=== PATIENT | male | born 1945 | race Caucasian/White ===

== ENCOUNTER → 2022-05-08 07:50 | Outpatient (CLI) | payer MEDICARE, OTHER, SELFPAY ==
--- NOTE | 2022-05-08 07:51 | CA_ITS ---
FINAL REPORT TECHNIQUE: Grayscale, color Doppler and duplex Doppler ultrasound of the kidneys, aorta and renal arteries was performed. Multiple velocities were measured. CLINICAL HISTORY: HTN FINDINGS: Aorta velocity: 99 cm/sec Right kidney: 11.5 cm. No evidence of hydronephrosis or mass. Right intrarenal RI: 0.7 Right renal artery velocity: 210 cm/sec. Right RAR (Renal artery-Aortic Ratio): 2.1 Left Kidney: 11.6 cm. No evidence of hydronephrosis or mass. Left intrarenal RI: 0.68 Left renal artery velocity: 154 cm/sec. Left RAR (Renal Artery-Aortic Ratio): 1.6 IMPRESSION: No evidence of significant renal artery stenosis on the left. Less than 60% renal artery stenosis on the right. CT angiogram or postcontrast MR angiogram would be more sensitive for evaluation of possible renal artery stenosis. Reviewed, Interpreted and Dictated by Adis Davis III, MD Transcribed by Chitra Resendez Authenticated and [facility]
--- NOTE | 2022-05-08 08:24 | US_ITS ---
FINAL REPORT TECHNIQUE: Ultrasound images of the kidneys were obtained. CLINICAL HISTORY: I10 - Essential (primary) hypertension FINDINGS: US RETROPERITONEAL The right kidney measures 9.8 cm in length. It is normal in echogenicity. There is no hydronephrosis. The left kidney measures 10.8 cm in length. It is normal in echogenicity. There is no hydronephrosis. Limited images of the liver are unremarkable. IMPRESSION: Unremarkable exam. Reviewed, Interpreted and Dictated by Adis Davis III, MD Transcribed by Chitra Resendez Authenticated and [facility]
== END ==
PROVIDERS: PCP Family Medicine; Visit Provider Internal Medicine
DX: I10 Essential (primary) hypertension (principal)
CPT/HCPCS: 76770; 93976

== ENCOUNTER → 2022-05-22 08:41 | Outpatient (CLI) | payer MEDICARE, OTHER, SELFPAY ==
[2022-05-22 09:06] LABS: Blood Urea Nitrogen 14 mg/dl (9-20); Estimated Glomerular Filt Rate 82 ml/min (>60); GFR (African American) 100 ML/MIN (>60)
--- NOTE | 2022-05-22 09:13 | MR_ITS ---
FINAL REPORT TECHNIQUE: Multi planar MR imaging of the abdomen was obtained after the intravenous administration of contrast per angiogram protocol. CLINICAL HISTORY: abnl renal arterial duplex, HYPERTENSION NOW UNDER CONTROL WITH MEDS. FINDINGS: There is a benign-appearing right renal cyst measuring 10 mm. Remaining solid abdominal organs are without acute abnormality. There is a single left and dual right renal arteries. Superior right renal artery is dominant. There is an accessory inferior right renal artery. No significant renal artery stenosis is seen. The aorta is normal in caliber. The celiac axis and SMA are widely patent. IMPRESSION: No significant arterial stenosis. Reviewed, Interpreted and Dictated by Edson Aj MD Transcribed by Chio Hernandez Authenticated and [facility]
== END ==
PROVIDERS: PCP Family Medicine; Visit Provider Internal Medicine
DX: I11.9 Hypertensive heart disease without heart failure; R06.02 Shortness of breath; R93.421 Abnormal radiologic findings on diagnostic imaging of right kidney; R93.422 Abnormal radiologic findings on diagnostic imaging of left kidney; R94.31 Abnormal electrocardiogram [ECG] [EKG]; E78.49 Other hyperlipidemia
CPT/HCPCS: 36415; 74185; 82565; 84520; A9576

== ENCOUNTER → 2023-03-26 13:15 | Outpatient (CLI) | payer MEDICARE, OTHER, SELFPAY ==
[2023-03-26 13:41] LABS: Basophils # 0.1 K/mm3 (0-0.2); Basophils % 0.9 % (0.1-2.0); Eosinophils # 0.6 K/mm3 (0.0-0.4); Eosinophils % 6.3 % (0.1-12.0); Hematocrit 47.9 % (42.0-52.0); Hemoglobin 15.5 g/dL (14.1-18.0); Lymphocytes # 2.6 K/mm3 (0.7-4.5); Lymphocytes % 29.3 % (10-50); Mean Corpuscular HGB Conc 32.3 g/dL (31.8-35.4); Mean Corpuscular Hemoglobin 30.6 pg (27.0-31.2); Mean Corpuscular Volume 94.7 fl (80-94); Mean Platelet Volume 7.6 fl (7.4-10.4); Monocytes # 0.7 K/mm3 (0.1-1.0); Monocytes % 7.5 % (1.7-9.3); Neutrophils # 4.9 K/mm3 (1.8-7.8); Neutrophils % 55.8 % (37.0-80.0); Platelet Count 249 K/mm3 (142-424); Red Blood Count 5.06 M/mm3 (4.60-6.20); Red Cell Distribution Width 12.9 % (11.5-17.5); White Blood Count 8.7 K/mm3 (4.8-10.8)
[2023-03-26 14:41] LABS: Alanine Aminotransferase 29 U/L (12-78); Albumin Level 4.3 g/dl (3.5-5.0); Alkaline Phosphatase 125 U/L (38-126); Anion Gap 12.8 mEq/L (5-15); Aspartate Amino Transferase 29 U/L (17-59); Bilirubin,Indirect 0.6 mg/dL (0.0-0.9); Bilirubin,Total 0.6 mg/dl (0.2-1.3); Bilirubin,Unconjugated 0.7 mg/dL (0.0-1.1); Blood Urea Nitrogen 20 mg/dl (9-20); Calcium 9.6 mg/dl (8.4-10.2); Carbon Dioxide 31 mmol/L (22.0-30.0); Chloride 103 mmol/L (98-107); Chol/HDL Ratio 4.3 (1-3.5); Cholesterol 176 mg/dl (140-200); Estimated Glomerular Filt Rate 82 ml/min (>60); GFR (African American) 99 ML/MIN (>60); Glucose 95 mg/dl (74-100); HDL Cholesterol 41 mg/dl (40-60); Magnesium 2.3 mg/dl (1.6-2.3); Potassium 4.8 mmoL/L (3.5-5.1); Sodium 142 mmol/L (136-145); Total Protein,Serum 7.7 g/dl (6.3-8.2); Triglycerides 275 mg/dl (30-150); VLDL Cholesterol 55 mg/dL (0-40)
[2023-03-26 14:57] LABS: 25-OH Vitamin D, Total 38.5 ng/mL (30-100)
[2023-03-26 14:58] LABS: Free T4 (Free Thyroxine) 1.13 ng/dl (0.78-2.19)
== END ==
PROVIDERS: PCP Family Medicine; Visit Provider Internal Medicine
DX: E78.5 Hyperlipidemia, unspecified (principal); I11.9 Hypertensive heart disease without heart failure; R94.31 Abnormal electrocardiogram [ECG] [EKG]; E55.9 Vitamin D deficiency, unspecified
CPT/HCPCS: 36415; 80048; 80061; 80076; 82306; 83735; 84439; 84443; 85025

== ENCOUNTER 2023-09-22 08:14 | Outpatient (CLI) | payer MEDICARE, OTHER, SELFPAY ==
--- NOTE | 2023-09-22 08:25 | CA_ITS ---
APPROVED REPORT EXAM: Comprehensive 2D, Doppler, and color-flow Echocardiogram Shadow Graph Weight Operator: Kamille Ram RT(R) Ht: 5 ft 11 in Wt: 235lbs BSA: 2.26 BP: 129/77 mmHg Indications: Abnormal ECG, Shortness of Breath, Hyperlipidemia, Hypertension/HDD 2D Dimensions LA Volume 32.90 mL LA Volume Index 14.20 mL/m2 (M/F) 16-34 EF AP4 40.50 % GL Strain -10.6 % M-Mode Dimensions RVDd 2.78 cm (0.9-2.6) LA Diam 3.51 cm (1.9-4.0) LVDd 5.88 cm (3.5-5.7) LVDs 4.35 cm (3.5-5.7) IVSd 1.29 cm (0.6-1.1) PWd 0.81 cm (0.6-1.1) EF (Teich) 50.30% FS 26.00% EDV (Teich) 171.90 mL ESV (Teich) 85.40 mL LV Diastology E Decel Time 280 (160-240 msec) E/A Ratio 0.74 Mitral Valve MV E Max Sandip. 58.0 (40-130 cm/s) MV A Velocity 79.0 (40-130 cm/s) E/A Ratio 0.74 MV PHT 82.0 ms Tricuspid Valve TR P. Velocity 270.00 cm/s RAP Estimate 10.00 mmHg RVSP 39.10 mmHg Left Ventricle The left ventricle is normal size. The left ventricular systolic function is normal. The left ventricular ejection fraction is within the normal range. There is marked increase in LV wall thickness (IVSd 1.4 cm). There is normal LV segmental wall motion. Diastolic function is indeterminate. LVEF is 55%. Right Ventricle The right ventricle is mildly dilated. The right ventricular systolic function is normal. Atria The left atrium size is normal. The right atrium size is normal. The interatrial septum is not well-visualized. Aortic Valve The aortic valve is mildly thickened. There is no aortic valvular stenosis. Trace aortic regurgitation. Mitral Valve The mitral valve leaflets are mildly thickened. No evidence of mitral valve stenosis. Trace mitral regurgitation. Tricuspid Valve The tricuspid valve leaflets are thin and pliable. Mild tricuspid regurgitation. RVSP is 30 mmHg plus RA pressure. Pulmonic Valve The pulmonary valve is normal in structure. Mild pulmonic regurgitation. Great Vessels The aortic root is normal in size. The ascending aorta is normal in size. The IVC is not well-visualized. Pericardium There is no pericardial effusion. Other Information Study Quality: Fair Conclusion Normal biventricular systolic function. Markedly elevated LV wall thickness (IVSd 1.4 cm). Mild RV dilation. Mild MR. Mild TR. RVSP 30 mmHg + RA pressure. In the setting of marked increase in LV wall thickness and presence of symptoms, further evaluation for infiltrative disease, namely amyloidosis, is recommended with cardiac MRI (amyloidosis protocol), PYP scan, and lab workup. Electronically signed by : Deedee Monsivais MD 09/23/2023 11:44:16
[2023-09-22 08:26] LABS: MANUAL DIFFERENTIAL MANUAL DIFFERENTIAL (MANUAL DIFF)
--- NOTE | 2023-09-22 08:41 | XR_ITS ---
FINAL REPORT CLINICAL HISTORY: htn FINDINGS: 2 views of the chest were obtained . The heart is normal in size. The mediastinum is within normal limits. There are mild patchy airspace opacities of the lung bases which may be due to mild pneumonia. There is no pneumothorax. Osseous structures are unremarkable. IMPRESSION: Mild patchy airspace opacities at the lung bases which may be due to mild pneumonia. Recommend follow-up. Reviewed, Interpreted and Dictated by Edson Aj MD Transcribed by Chio Hernandez Authenticated and . [facility]
[2023-09-22 08:43] LABS: Basophils # 0.1 K/mm3 (0-0.2); Basophils % 0.7 % (0.1-2.0); Eosinophils # 0.6 K/mm3 (0.0-0.4); Eosinophils % 7.2 % (0.1-12.0); Hematocrit 47.2 % (42.0-52.0); Hemoglobin 16.1 g/dL (14.1-18.0); Lymphocytes # 1.6 K/mm3 (0.7-4.5); Lymphocytes % 17.6 % (10-50); Mean Corpuscular HGB Conc 34.2 g/dL (31.8-35.4); Mean Corpuscular Hemoglobin 32.1 pg (27.0-31.2); Mean Corpuscular Volume 93.9 fl (80-94); Monocytes # 0.6 K/mm3 (0.1-1.0); Neutrophils % 67.5 % (37.0-80.0); Platelet Count 238 K/mm3 (142-424); Red Blood Count 5.02 M/mm3 (4.60-6.20); Red Cell Distribution Width 13.7 % (11.5-17.5); White Blood Count 8.8 K/mm3 (4.8-10.8)
[2023-09-22 09:47] LABS: Eosinophils % 10 % (0-3); Lymphocytes % 26 % (10-50); Monocytes % 4 % (2-9); Neutrophils % 60 % (42-76); Platelet Estimate Normal; RBC Morphology Normal; Total Cells Counted 100
[2023-09-22 10:58] LABS: Chloride 101 mmol/L (98-107); Sodium 138 mmol/L (136-145)
[2023-09-22 10:59] LABS: Potassium 4.5 mmoL/L (3.5-5.1)
[2023-09-22 11:01] LABS: Alanine Aminotransferase 23 U/L (12-78); Albumin Level 4.3 g/dl (3.5-5.0); Alkaline Phosphatase 95 U/L (38-126); Anion Gap 13.5 mEq/L (5-15); Aspartate Amino Transferase 35 U/L (17-59); Bilirubin,Direct 0.8 mg/dl (0.0-0.4); Bilirubin,Indirect 0.1 mg/dL (0.0-0.9); Bilirubin,Total 0.9 mg/dl (0.2-1.3); Blood Urea Nitrogen 19 mg/dl (9-20); Calcium 9.5 mg/dl (8.4-10.2); Carbon Dioxide 28 mmol/L (22.0-30.0); Chol/HDL Ratio 5.3 (1-3.5); Cholesterol 159 mg/dl (140-200); Estimated Glomerular Filt Rate 72 ml/min (>60); GFR (African American) 88 ML/MIN (>60); Glucose 121 mg/dl (74-100); HDL Cholesterol 30 mg/dl (40-60); Total Protein,Serum 7.6 g/dl (6.3-8.2); Triglycerides 159 mg/dl (30-150); VLDL Cholesterol 32 mg/dL (0-40)
[2023-09-22 11:21] LABS: Direct LDL Cholesterol 96.87 mg/dL (100-129)
[2023-09-22 11:24] LABS: Free T4 (Free Thyroxine) 1.38 ng/dl (0.78-2.19)
[2023-09-22 13:05] LABS: Amylase 54 U/L (30-110)
[2023-09-22 13:06] LABS: Lipase 117 U/L (23-300); NT Pro Brain Natriuretic Pep. 103 pg/mL (0-450)
--- NOTE | 2023-09-22 13:28 | CT_ITS ---
FINAL REPORT TECHNIQUE: Pre and post contrast images of the abdomen were obtained. IV contrast was administered. Coronal reformatted images were also obtained and reviewed.This study was performed with techniques to keep radiation doses as low as reasonably achievable (ALARA). Individualized dose reduction techniques using automated exposure control or adjustment of mA and/or kV according to the patient's size were employed. CLINICAL HISTORY: generalized abd pain COMPARISON: None FINDINGS: Precontrast images demonstrate no evidence of kidney stones. There is mild calcification in the right adrenal gland which may be due to old adrenal hemorrhage. The liver has an unremarkable appearance, without evidence of mass or biliary ductal dilatation. The gallbladder is present. The spleen is unremarkable. No adrenal mass is present. The pancreas has an unremarkable appearance. The kidneys are normal, without evidence of mass or hydronephrosis. The aorta is normal in caliber. There is no free fluid or adenopathy. No mass or abnormal fluid collection is seen. There are advanced changes of degenerative disc disease throughout the lumbar spine with spondylolisthesis of L2 on L3. IMPRESSION: Calcification right adrenal gland. Advanced degenerative disc disease Reviewed, Interpreted and Dictated by Edson Aj MD Transcribed by Bri Villegas Authenticated and [facility]
--- NOTE | 2023-09-22 13:28 | CT_ITS ---
FINAL REPORT TECHNIQUE: The patient was injected with IV contrast. Axial images were obtained of the chest by computed tomography. Precontrast images were also obtained. This study was performed with techniques to keep radiation doses as low as reasonably achievable (ALARA). Individualized dose reduction techniques using automated exposure control or adjustment of mA and/or kV according to the patient's size were employed. CLINICAL HISTORY: Shortness of breath COMPARISON: None FINDINGS: CT OF THE CHEST WITH AND WITHOUT CONTRAST: There is no axillary adenopathy. There are few small scattered mediastinal lymph nodes. Right paratracheal nodes measure up to 1.5 cm. Heart size is normal. There is no pericardial or pleural effusion identified. There are extensive coarse interstitial opacities in the periphery of both lungs, most evident at the bases, probably due to chronic fibrosis. IMPRESSION: Chronic fibrosis. Mild mediastinal adenopathy. Reviewed, Interpreted and Dictated by Edson Aj MD Transcribed by Bri Villegas Authenticated and [facility]
[2023-09-22] MEDS: SODIUM CHLORIDE 0.9% 10ML SYR (RAD ONLY) 10 ML IV (13:54)
[2023-09-22] MEDS: IOPAMIDOL-370 (76%);100ML BOTTLE 75 ML IV (13:54)
[2023-09-22 14:45] LABS: D-Dimer 0.52 ug/mL (0.0-0.5)
== END 2023-09-22 23:59 ==
PROVIDERS: PCP Family Medicine; Visit Provider Internal Medicine
DX: R06.02 Shortness of breath (principal); R53.83 Other fatigue; E78.5 Hyperlipidemia, unspecified; I10 Essential (primary) hypertension; R06.00 Dyspnea, unspecified; R93.421 Abnormal radiologic findings on diagnostic imaging of right kidney; R93.422 Abnormal radiologic findings on diagnostic imaging of left kidney; R94.31 Abnormal electrocardiogram [ECG] [EKG]; J18.9 Pneumonia, unspecified organism; R17 Unspecified jaundice
CPT/HCPCS: 36415; 71046; 71270; 74170; 80048; 80061; 80076; 82150; 83690; 83880; 84439; 84443; 85007; 85014; 85018; 85048; 85049; 85378; 93306; Q9967

== ENCOUNTER 2023-09-23 12:10 | Outpatient (CLI) | payer MEDICARE, OTHER, SELFPAY ==
[2023-09-23 12:49] LABS: INR 1.05 (0.9-1.1); Prothrombin Time 11.3 seconds (10.1-12.5)
[2023-09-23 13:02] LABS: Uric Acid 8.4 mg/dl (3.5-8.5)
[2023-09-23 13:04] LABS: Erythrocyte Sedimentation Rate 20 mm/hr (0-20)
[2023-09-23 13:13] LABS: C-Reactive Protein 8.8 mg/L (0-4)
[2023-09-24 08:19] LABS: RA Latex Turbid. <10.0 IU/mL (<14.0)
[2023-09-24 15:10] LABS: Antinuclear Antibodies, IFA Negative (.)
[2023-09-24 16:21] LABS: Cytoplasmic (C-ANCA) <1:20 titer (Neg:<1:20); Perinuclear (P-ANCA) <1:20 titer (Neg:<1:20)
[2023-09-26 03:37] LABS: D002-IgE D farinae 0.22 kU/L (Class 0/I); E001-IgE Cat Dander 0.61 kU/L (Class II); E005-IgE Dog Dander 0.16 kU/L (Class 0/I); E072-IgE Mouse Urine <0.10 kU/L (Class 0); G002-IgE Bermuda Grass <0.10 kU/L (Class 0); G006-IgE Timothy Grass <0.10 kU/L (Class 0); I006-IgE Cockroach, German <0.10 kU/L (Class 0); Immunoglobulin E, Total 227 IU/mL (6-495); M001-IgE Penicillium chrysogen <0.10 kU/L (Class 0); M002-IgE Cladosporium herbarum <0.10 kU/L (Class 0); M003-IgE Aspergillus fumigatus <0.10 kU/L (Class 0); M006-IgE Alternaria alternata <0.10 kU/L (Class 0); T001-IgE Maple/Box Elder <0.10 kU/L (Class 0); T003-IgE Common Silver Birch <0.10 kU/L (Class 0); T006-IgE Cedar, Mountain <0.10 kU/L (Class 0); T007-IgE Oak, White <0.10 kU/L (Class 0); T008-IgE Elm, American <0.10 kU/L (Class 0); T010-IgE Walnut <0.10 kU/L (Class 0); T011-IgE Maple Leaf Sycamore <0.10 kU/L (Class 0); T014-IgE Cottonwood <0.10 kU/L (Class 0); T015-IgE Ash, White <0.10 kU/L (Class 0); T022-IgE Pecan, Hickory <0.10 kU/L (Class 0); T070-IgE White Mulberry <0.10 kU/L (Class 0); W001-IgE Ragweed, Short <0.10 kU/L (Class 0); W011-IgE Thistle, Russian <0.10 kU/L (Class 0); W014-IgE Pigweed, Common <0.10 kU/L (Class 0); W018-IgE Sheep Sorrel <0.10 kU/L (Class 0)
[2023-09-26 17:10] LABS: Aspergillus flavus Negative (Neg:<1:1); Aspergillus fumigatus Negative (Neg:<1:1); Aspergillus niger Negative (Neg:<1:1); Blastomyces Antibody Negative (Neg:<1:1)
[2023-09-27 18:44] LABS: Histoplasma Antibody Quant Negative (Neg:<1:1)
[2023-10-01 10:47] LABS: Antiproteinase 3 (PR-3) Abs <0.2; Myeloperoxidase Antibody <0.2
[2023-10-01 10:48] LABS: Antinuclear Antibodies (ANA) NEGATIVE; Aspergillus fumigatus IgG NEGATIVE; Pigeon Serum Abs NEGATIVE
== END 2023-09-23 23:59 ==
LOC: LAB 12:11
PROVIDERS: PCP Family Medicine; Visit Provider Internal Medicine Pulmonary Disease
DX: J84.9 Interstitial pulmonary disease, unspecified (principal); R04.2 Hemoptysis; Z01.812 Encounter for preprocedural laboratory examination; J84.10 Pulmonary fibrosis, unspecified; J30.9 Allergic rhinitis, unspecified; R91.1 Solitary pulmonary nodule; R06.09 Other forms of dyspnea
CPT/HCPCS: 36415; 82785; 83520; 84550; 85610; 85651; 86003; 86038; 86140; 86225; 86235; 86256; 86331; 86431; 86602; 86606; 86609; 86612; 86698

== ENCOUNTER 2023-09-29 10:06 | Day surgery (SDC) | payer MEDICARE, OTHER, SELFPAY ==
[2023-09-26 10:15] VITALS: BMI 33.7
[2023-09-29] VITALS (9 sets, daily range): BP systolic 126–153; BP diastolic 66–92; PULSE 55–71; RESP 12–18; TEMP 35.9–36.6; O2SAT 92–97
[2023-09-29] MEDS: LACTATED RINGERS 1000ML 1,000 ML 25 ML IV (10:25)
[2023-09-29 10:57] LABS: Basophils # 0.1 K/mm3 (0-0.2); Basophils % 0.9 % (0.1-2.0); Eosinophils # 0.8 K/mm3 (0.0-0.4); Eosinophils % 8.2 % (0.1-12.0); Hematocrit 42.9 % (42.0-52.0); Hemoglobin 14.9 g/dL (14.1-18.0); Lymphocytes # 2.5 K/mm3 (0.7-4.5); Lymphocytes % 24.6 % (10-50); Mean Corpuscular HGB Conc 34.8 g/dL (31.8-35.4); Mean Corpuscular Hemoglobin 32.7 pg (27.0-31.2); Mean Corpuscular Volume 93.9 fl (80-94); Mean Platelet Volume 8.2 fl (7.4-10.4); Monocytes # 0.6 K/mm3 (0.1-1.0); Monocytes % 5.7 % (1.7-9.3); Neutrophils # 6.1 K/mm3 (1.8-7.8); Neutrophils % 60.5 % (37.0-80.0); Platelet Count 253 K/mm3 (142-424); Red Blood Count 4.57 M/mm3 (4.60-6.20); Red Cell Distribution Width 13.7 % (11.5-17.5)
[2023-09-29 11:01] LABS: Anion Gap 12.1 mEq/L (5-15); Blood Urea Nitrogen 19 mg/dl (9-20); Carbon Dioxide 26 mmol/L (22.0-30.0); Chloride 103 mmol/L (98-107); Creatinine Clearance Estimated 96 mL/min (50-200); Estimated Glomerular Filt Rate 94 ml/min (>60); GFR (African American) 113 ML/MIN (>60); Glucose 109 mg/dl (74-100); Potassium 5.1 mmoL/L (3.5-5.1); Sodium 136 mmol/L (136-145)
[2023-09-29 11:38] LABS: Total Protein,Serum 7.2 g/dl (6.3-8.2)
--- NOTE | 2023-09-29 13:29 | XR_ITS ---
FINAL REPORT CLINICAL HISTORY: bronchoscopy bx 82.47 mgy 3:47 min fluoro time FINDINGS: FLUOROSCOPY LESS THAN 1 HOUR HISTORY: Fluoroscopy guidance. Fluoroscopic guidance was provided for bronchoscopic biopsy. The 2 spot films were obtained. A total of 3:47 minutes of fluoroscopy time were used. Total DAP: 82.47 mGy IMPRESSION: As above. Reviewed, Interpreted and Dictated by Jb Paulino MD Transcribed by Bri Villegas Authenticated and [facility]
--- NOTE | 2023-09-29 13:36 | EXP.ANES.I ---
[facility] Anesthesia Record Part I Anesthesia Record I Intake, IV Amount: 700 Hydration: Adequate Estimated blood loss (mL): 10 Urine output (mL): 0 Blood Products used (#): none Blood Pressure: 128/66 SaO2: 95 Pulse Rate: 71 Airway Patency: Patent Respiratory Rate: 18 Temperature: 96.6 F Patient is:: Awake (Talking) Stable to PACU at:: 13:35
--- NOTE | 2023-09-29 13:42 | XR_ITS ---
FINAL REPORT TECHNIQUE: Single view chest CLINICAL HISTORY: post bronch FINDINGS: A single view of the chest was obtained. The heart and mediastinum are within normal limits. The lungs are hypoinflated but clear. There is no pneumothorax. Osseous structures are unremarkable. IMPRESSION: No acute cardiopulmonary process. Reviewed, Interpreted and Dictated by Jb Paulino MD Transcribed by Chio Hernandez Authenticated and [facility]
--- NOTE | 2023-09-29 13:56 | P.PCN_ITS ---
Procedure: Date: 09/29/23 Patient Date of :: 1945 Procedure Performed:: Bronchoscopy airway examination bronchoalveolar lavage transbronchial lung biopsy and endobronchial ultrasound-guided fine-needle aspiration Indications:: Interstitial lung disease, lymphadenopathy Performing Provider:: Ian Noguera MD Referring Provider:: Dr. Rivas Sedation:: General anesthesia Procedure:: Bronchoscopy airway examination bronchoalveolar lavage transbronchial lung biopsy and endobronchial ultrasound-guided fine-needle aspiration: A clean EBUS bronchoscopy was advanced the ET tube and lymph node surveillance was performed. Lymphadenopathy was noted at stations 10 R, 7 and 4R. A total of 5 passes were performed at each lymph node station and the lymph node samples were sent seperatey in CytoLyt for cytopathologic examination. Lymphnode samples were also sent separately in RPMI for flow cytometric examination. EBUS bronchoscopy was retracted and a clean diagnostic bronchoscopy was ad vanced. Airways appeared grossly normal, no evidence of mucoid secretions, mucous plugging active bleeding/old blood clots noted. Bronchoalveolar lavage was performed in the RIGHT LOWER LOBE with instillation of 60 cc normal saline with return of 30 cc blood tinged back. BAL fluid was sent for cell count and differential along with bacterial fungal and AFB stain and cultures. Transbronchial biopsy was performed in the RIGHT LOWER LOBE with a total of 5 biopsies performed and were sent in formalin for cytopathologic examination. Special request was also made for the pathologist to evaluate for AFB and fungal organisms on the cytopathologic examination. Patient tolerated the procedure with no immediate acute complications. We will follow the patient in pulmonary clinic in 7 to 10 days. Findings:: Please see the procedure note Recommendations:: Postoperative bronchoscopy instructions Follow in pulmonary clinic in 5 to 10 days Complications:: No acute immediate complication Estimated blood obtained (mL): 10
--- NOTE | 2023-09-30 07:22 | EXP.ANES.II ---
[facility] Anesthesia Record Part II Anesthesia Record Part II Discharge Time: 14:00 Destination: Surgical Day Care (OP Surgery) PACU nurse assessment reviewed?: Yes Patient Condition:: Good Anesthesia Complications:: None Swallowing reflex intact?: Yes Airway Patency: Patent Cyanosis?: No Blood Pressure: 144/79 SaO2: 95 Respiratory Rate: 16 Pulse Rate: 60 Temperature: 97.3 F Mental Status: Alert & Oriented Pain level:: 0 Nausea and/or vomitting:: None Intake, IV Amount: 0 Hydration: Adequate
[2023-09-30 07:24] VITALS: BP 144/79; PULSE 60; RESP 16; TEMP 36.3; O2SAT 95
[2023-09-30 18:07] LABS: Albumin 3.8 g/dL (2.9-4.4); Alpha-1-Globulin 0.2 g/dL (0.0-0.4); Alpha-2-Globulin 0.9 g/dL (0.4-1.0); Gamma Globulin 1.3 g/dL (0.4-1.8); Immunoglobulin A, Qn 362 mg/dL (61-437); Immunoglobulin G, Qn 1303 mg/dL (603-1613); Immunoglobulin M, Qn 66 mg/dL (15-143); Protein, Total 7.2 g/dL (6.0-8.5)
[2023-10-01 12:23] LABS: PDF SCANNED IMAGE
[2023-10-01 12:24] LABS: Free Kappa Lt Chains 28.8
[2023-10-01 12:25] LABS: Free Lambda Lt Chains 15.5
== END 2023-09-29 14:51 | disposition home or self-care (01) ==
PROVIDERS: Physician Assistant; PCP Family Medicine; Visit Provider Internal Medicine Pulmonary Disease
PROC: (CPT 31624; principal; 2023-09-29 10:15)
DX: R59.1 Generalized enlarged lymph nodes (principal); E78.5 Hyperlipidemia, unspecified; E85.9 Amyloidosis, unspecified; J84.10 Pulmonary fibrosis, unspecified; I10 Essential (primary) hypertension; R06.02 Shortness of breath; R06.09 Other forms of dyspnea; R17 Unspecified jaundice; R94.31 Abnormal electrocardiogram [ECG] [EKG]; Z79.899 Other long term (current) drug therapy
CPT/HCPCS: 31624; 31628; 31653; 71045; 76000; 80048; 82784; 83883; 84155; 84165; 85025; 86334; 87070; 87102; 87116; 87186; 87205; 87206; 88112; 88173; 88184; 88185; 88305; 88312; 89051; J3490; J2405

== ENCOUNTER 2023-10-02 11:18 | Outpatient (CLI) | payer MEDICARE, OTHER, SELFPAY ==
--- NOTE | 2023-10-02 11:19 | NM_ITS ---
APPROVED REPORT Exam: Nuclear Stress Test Indication: soa..palpitations..dizziness Patient Location: Outpatient Stress Tech: Mary Coulter [place] Tech:Francheska Nair HECTOR RT(R)(N) Ht: 5 ft 11 in Wt: 237 lbs HR: 54 bpm BP: 112/73 mmHg BSA: 2.27 m2 Rhythm: NSR TID: 1.26 BMI: 33.0 History: soa..palpitations..dizziness Procedure: Patient received 0.4 mg of intravenous Lexiscan, resting heart rate 54 bpm, resting blood pressure 112/73 mmHg, with Lexiscan maximum heart rate achieved was 82 bpm which is 85 % of the maximum predicted heart rate and blood pressure was 165/76 mmHg. With Lexiscan, patient denied any complaint of chest pain. Cardiac Stress and Resting SPECT Images: Cardiac Stress and Resting SPECT images were obtained using technetium 99m Myoview 29.9 mCi stress and 10.34 mCi at rest. Resting and stress imaging in supine and prone positions demonstrate a medium-sized, moderate, reversible perfusion defect in the basal to mid inferior and inferolateral LV beaulieu, as well as a small-sized, moderate, fixed perfusion defect in the LV apex. There is increase in transient ischemic dilatation ratio (TID 1.26), suggestive of possible multivessel disease or balanced ischemia. Gated imaging demonstrates normal global LV systolic function. There is mild hypokinesis of the inferior and inferolateral LV beaulieu. LVEF is calculated at 55%. Conclusion: Medium-sized, moderate, reversible perfusion defect in the basal to mid inferior and inferolateral LV beaulieu, as well as a small-sized, moderate, fixed perfusion defect in the LV apex. Increase in transient ischemic dilatation ratio (TID 1.26), suggestive of possible multivessel disease or balanced ischemia. Gated imaging demonstrates normal global LV systolic function. There is mild hypokinesis of the inferior and inferolateral LV beaulieu. LVEF is calculated at 55%. Electronically signed by : Deedee Monsivais MD 10/03/2023 14:31:45
--- NOTE | 2023-10-02 13:33 | CA_ITS ---
APPROVED REPORT Exam: Pharmacologic Technologist: Mary Pederson, Ht: 5 ft 11 in Wt: 239 lbs BSA: 2.27 m2 HR: 53 bpm BP: 112/73 mmHg Rhythm: NSR Medical History Medications: Amlodipine,,,,, Aspirin,,,,, Atorvastatin,,,,, Carvedilol,,,,, Flonase,,,,, MeLOXICAM,,,,, OSTEO Bi Flex,,,,, Multivitamin,,,,, DiOVAN HCT,,,,, Stress Test Details Test: LEXISCAN Reason for pharmacologic stress test: physical limitation. HR Resting HR: 54 bpm Max Heart Rate (APMHR): 143 bpm Max HR Achieved: 82 bpm Target HR (85% APMHR): 122 bpm % of APMHR: 57 Recovery HR: 68 bpm BP Resting BP: 112.0/73.0 mmHg Max BP: 165.0/76.0 mmHg Recovery BP: 158.0/75.0 mmHg ECG Resting ECG: Sinus bradycardia, non-specific T wave changes Stress ECG: No significant ST changes Arrhythmia: PACs, PVCs Clinical Exercise duration: 04:01 min Highest Stage Achieved: Stress ECG Conclusion Symptoms: SOA, mild stomach & head discomfort. Mild chest discomfort. Arrhythmias/Ectopy: PACs, PVCs ST-T Changes: No significant ST changes. Conclusion: Unremarkable Lexiscan stress. Myoview images reported separately. Test Summary REST . . . . . . . Resting REST 04:07 . . 54 . 112/ 73 . . Stage 1 . . . . . . . Cardiolite injected Stage 1 01:00 . . 64 . . . . Stage 2 01:00 . . 76 . . . . Stage 3 01:00 . . 75 . 160/ 79 . . Stage 4 01:00 . . 68 . 161/ 80 . . Stage 4 01:01 . . 68 . 161/ 80 . Stop exercise at 04:01 RECOVERY 01:00 . . 79 . 152/ 82 . . RECOVERY 02:00 . . 61 . 165/ 76 . . RECOVERY 03:00 . . 60 . 165/ 76 . . RECOVERY 03:39 . . 70 . 158/ 75 . . Electronically signed by : Deedee Monsivais MD 10/03/2023 14:25:26
[2023-10-02] MEDS: ISOTOPE MYOVIEW (PER STUDY) 1 DOSE IV (14:10)
[2023-10-02] MEDS: SODIUM CHLORIDE 0.9% 10ML SYR (RAD ONLY) 10 ML IV ×2 (14:10)
[2023-10-02] MEDS: REGADENOSON 0.4MG/5ML SYRINGE 0.400000000000000022 MG IV (14:10)
[2023-10-06 12:30] LABS: Albumin, U 25.7 % (.); Albumin, U 31.8 % (.); Alpha-1-Globulin, U 5.4 % (.); Alpha-1-Globulin, U 5.5 % (.); Alpha-2-Globulin, U 16.2 % (.); Alpha-2-Globulin, U 9.3 % (.); Beta Globulin, U 28.8 % (.); Beta Globulin, U 29.5 % (.); Gamma Globulin, U 23.8 % (.); Gamma Globulin, U 23.9 % (.); M-Spike, % Not Observed % (Not Observed); Prot,24hr calculated <125 mg/24 hr (30-150); Protein,Total,Urine <4.0 mg/dL (Not Estab.)
[2023-10-07 14:07] LABS: PDF: SCANNED IMAGE
== END 2023-10-02 23:59 ==
LOC: RAD 11:19
PROVIDERS: Physician Assistant; PCP Family Medicine; Visit Provider Internal Medicine
DX: E85.9 Amyloidosis, unspecified; I10 Essential (primary) hypertension; R06.09 Other forms of dyspnea; E78.5 Hyperlipidemia, unspecified; J84.10 Pulmonary fibrosis, unspecified; R06.02 Shortness of breath; R17 Unspecified jaundice; R94.31 Abnormal electrocardiogram [ECG] [EKG]; E78.49 Other hyperlipidemia
CPT/HCPCS: 78452; 84156; 84166; 86335; 93017; 93018; A9502; J2785

== ENCOUNTER 2023-10-13 08:54 | Day surgery (SDC) | payer MEDICARE, OTHER, SELFPAY ==
[2023-10-13] VITALS (14 sets, daily range): BP systolic 115–185; BP diastolic 64–100; PULSE 47–67; RESP 15–20; TEMP 37.1; O2SAT 91–97; BMI 33.2
--- NOTE | 2023-10-13 07:17 | IR_ITS ---
APPROVED REPORT Patient Location: Outpatient PROCEDURES Right heart catheterization Left heart catheterization Left ventriculogram Selective coronary angiogram INDICATION Abnormal Myoview, Pulmonary hypertension Informed consent was obtained prior to the procedure. COMPLICATIONS NONE Estimated Blood Loss: LESS THAN 10 ML TECHNIQUE One percent lidocaine was used to anesthetize the right anterior aspect of the right wrist. The right radial artery was accessed via the Seldinger technique and a 6 Frisian hydrophilic sheath was placed in the right radial artery. Following this one percent lidocaine was used to anesthetize the right anterior aspect of the right neck. The right internal jugular vein was accessed via the Seldinger technique and a 7 Frisian sheath was placed in the right internal jugular vein. Following this an arterial cocktail was administered using 5000U heparin, 2.5 mg verapamil, 1mg Lidocaine and 800mcg nitroglycerin into the right radial sheath. A papa catheter was used to perform left heart catheterization left ventriculogram and selective coronary angiography while a [place]-Alfreda catheter was used to perform right heart catheterization. Saturations were obtained in the pulmonary artery and right atrium. At the end of the procedure the arterial sheath was removed good hemostasis was achieved using Traclet band. Patient was transferred to the postop holding area in stable condition for venous sheath removal. ANGIOGRAPHIC RESULTS The left main artery Normal The left anterior descending artery Is a small caliber vessel with mild 10% luminal irregularities throughout both proximally and distally The circumflex artery Nondominant and normal The right coronary artery Dominant with proximal 10 to 20% luminal irregularities The ABREU ventriculogram reveals Normal 65% The left ventricular end-diastolic pressure 15 mmHg Right atrial pressure 8 mmHg Pulmonary artery pressure 37/22 mmHg Pulmonary occlusion pressure 15 mmHg Hemoglobin 15.3 Right atrial saturation 83% Pulmonary artery saturation 80% Aortic saturation 96% Cardiac output 5.8 L/min IMPRESSION Mild luminal irregularities L which are nonflow limiting Normal ejection fraction Mild pulmonary hypertension PLAN 1. Continue with cardiac MRI and PYP scan 2. Continue with pulmonology evaluation 3. Risk factor modification for coronary artery disease Electronically signed by : Christ Rivas MD 10/13/2023 14:42:46
[2023-10-13 09:34] LABS: Basophils # 0.1 K/mm3 (0-0.2); Basophils % 0.5 % (0.1-2.0); Eosinophils # 0.8 K/mm3 (0.0-0.4); Eosinophils % 7.8 % (0.1-12.0); Hematocrit 45.2 % (42.0-52.0); Hemoglobin 15.3 g/dL (14.1-18.0); Lymphocytes # 2.4 K/mm3 (0.7-4.5); Lymphocytes % 23.8 % (10-50); Mean Corpuscular HGB Conc 33.7 g/dL (31.8-35.4); Mean Corpuscular Hemoglobin 31.9 pg (27.0-31.2); Mean Corpuscular Volume 94.5 fl (80-94); Mean Platelet Volume 7.7 fl (7.4-10.4); Monocytes # 0.7 K/mm3 (0.1-1.0); Monocytes % 6.6 % (1.7-9.3); Neutrophils # 6.2 K/mm3 (1.8-7.8); Neutrophils % 61.4 % (37.0-80.0); Platelet Count 261 K/mm3 (142-424); Red Blood Count 4.78 M/mm3 (4.60-6.20); Red Cell Distribution Width 13.3 % (11.5-17.5); White Blood Count 10.1 K/mm3 (4.8-10.8)
[2023-10-13 09:36] LABS: Chloride 104 mmol/L (98-107)
[2023-10-13 09:37] LABS: Potassium 4.3 mmoL/L (3.5-5.1); Sodium 139 mmol/L (136-145)
[2023-10-13 09:40] LABS: Anion Gap 8.3 mEq/L (5-15); Blood Urea Nitrogen 20 mg/dl (9-20); Calcium 9.4 mg/dl (8.4-10.2); Carbon Dioxide 31 mmol/L (22.0-30.0); Creatinine Clearance Estimated 94 mL/min (50-200); Estimated Glomerular Filt Rate 82 ml/min (>60); GFR (African American) 99 ML/MIN (>60); Glucose 98 mg/dl (74-100)
[2023-10-13] MEDS: diphenhydrAMINE 50MG/ML VIAL 50 MG IV (10:58)
[2023-10-13] MEDS: NITROGLYCERIN 800MCG/8ML SYR (CATH LAB) 800 MCG IA (10:58)
[2023-10-13] MEDS: LIDOCAINE 1% 10ML MDV 20 ML IJ (10:58)
[2023-10-13] MEDS: VERAPAMIL 2.5MG/ML 2ML VIAL 2.5 MG IV (10:58)
[2023-10-13] MEDS: HEPARIN 1,000 UNITS/ML 10ML VIAL (CATH LAB) 10000 UNIT IV (10:58)
[2023-10-13] MEDS: 0.9 % SODIUM CHLORIDE 500 ML 25 ML IV (10:59)
[2023-10-13] MEDS: MIDAZOLAM HCL 1MG/1ML 5ML VIAL 1 MG IV (10:59)
[2023-10-13] MEDS: FENTANYL 100MCG/2ML VIAL 50 MCG IV (10:59)
[2023-10-13] MEDS: HEPARIN 1,000 UNITS/500ML NS (CATH LAB) 3000 UNIT IV (10:59)
[2023-10-13] MEDS: IOPAMIDOL-370 (76%);100ML BOTTLE 50 ML IV (11:34)
[2023-10-13 11:35] LABS: CATHL Arterial O2 SAT 80 % (90-100)
[2023-10-13 11:36] LABS: CATHL Venous O2 SAT 83 % (75-80)
== END 2023-10-13 14:48 | disposition home or self-care (01) ==
PROVIDERS: PCP Family Medicine; Visit Provider Internal Medicine
DX: R07.9 Chest pain, unspecified (principal); R94.39 Abnormal result of other cardiovascular function study; Z79.899 Other long term (current) drug therapy; I10 Essential (primary) hypertension; R93.1 Abnormal findings on diagnostic imaging of heart and coronary circulation; J84.10 Pulmonary fibrosis, unspecified; E85.9 Amyloidosis, unspecified
CPT/HCPCS: 80048; 82810; 85025; 93460; 99152; C1725; C1769; C1894; J1644; Q9967

== ENCOUNTER 2023-10-15 09:59 | Outpatient (CLI) | payer MEDICARE, OTHER, SELFPAY ==
--- NOTE | 2023-10-15 10:00 | MR_ITS ---
APPROVED REPORT Warehouse Attendant: CLINICAL INDICATION Increased LV wall thickness on TTE. Evaluate for infiltrative cardiomyopathy. TECHNIQUE Image Acquisition: Cardiac magnetic resonance (CMR) was performed on Siemens Espree MRI 1.5T scanner. Software platform sequences were performed using the Siemens Avtal24 MR B19 platform. A set of three-plane, low-resolution, large [id number] localizers were initially acquired. Then axial, coronal, sagittal TrueFISP, as well as axial HASTE images, were obtained. These were followed by gated TrueFISP breathold cinematic sequences obtained in the short axis with 8 mm slices and 2 mm gaps, 2-chamber (vertical long axis), 3-chamber, 4-chamber (horizontal long axis). A bolus of contrast was injected intravenously with first-pass sequences obtained in the short axis and four-chamber planes. After approximately 10 minutes, a TI health clinician sequence was performed to determine the optimal TI time. Using the optimized TI time, delayed contrast enhancement segmented inversion???recovery TurboFLASH sequences were obtained in the short axis, 2-chamber, 3-chamber, and 4-chamber projections. 2D-velocity phase mapping was performed. Functional parameters were calculated by offline analysis on an independent workstation ([employer], [employer]). Contrast: ProHance??? (Gadoteridol) FINDINGS MORPHOLOGY AND FUNCTION Left ventricle: The left ventricle is normal in size. The indexed left ventricular end-diastolic volume (LVEDVi) is 51 ml/m2 (reference range 57-105 ml/m2 in males, 56-96 ml/m2 in females). Normal left ventricular systolic function is present. There is mild increase in LV wall thickness, up to 11 mm. The septum appears asynchronous. There are no regional wall motion abnormalities noted. LVEF is calculated at 64.9% (reference range 57-77%). Right ventricle: The right ventricle is normal in size. The indexed right ventricular end-diastolic volume (RVEDVi) is 82 ml/m2 (reference range 61-121 ml/m2 in males, 48-112 ml/m2 in females). The right ventricular systolic function is mildly reduced. RVEF is calculated at 47.7% (reference range 52-72% in males, 51-71% in females). Atria: The left atrium is normal in size. The maximum indexed left atrial volume is 26 ml/m2 (reference range 26-52 ml/m2 in males, 27-53 ml/m2 in females). The right atrium is normal in size. The maximum indexed right atrial volume is 20 ml/m2 (reference range 18-90 ml/m2). Aorta: The diameter of the aortic annulus is normal, measuring 21 mm (coronal view reference range 21-30 mm in males, 19-27 mm in females). The diameter of the aortic sinus is normal, measuring 36 mm (coronal view reference range 25-42 mm in males, 24-36 mm in females). The diameter of the sinotubular junction is normal, measuring 30 mm (coronal view reference range 18-32 mm in males, 18-28 mm in females). The diameters of the ascending and descending thoracic aorta are normal. Main pulmonary artery: The main pulmonary artery diameter is normal. Pericardium: The pericardial thickness is normal. The pericardial thickness measures 2.3 cm (normal < 4.0 cm). There is no pericardial effusion. VALVES The valvular morphologies in the visualized sequences appear normal. There is no significant valvular stenosis or regurgitation of the mitral, aortic, tricuspid, or pulmonic valve noted visually. Systolic anterior motion of the mitral valve is not visualized. TISSUE CHARACTERIZATION Resting Perfusion: Normal myocardial blood flow at rest. No evidence of resting hypoperfusion. Myocardial Fibrosis and/or edema: Normal gadolinium kinetics are present. No evidence of late gadolinium enhancement is noted, consistent with absence of myocardial scarring, infarction, or necrosis. T2-weighted imaging demonstrates no evidence of myocardial edema or inflammation. OTHER No other significant findings are noted. However, this exam is focused on the cardiac structure and function. IMPRESSION Normal LV size with normal LV systolic function. LVEDVi= 51 ml/m2 and LVEF= 64.9%. Normal RV size with mild reduction in RV systolic function. RVEDVi= 82 ml/m2 and RVEF= 47.7%. No atrial enlargement. No CMR evidence of myocardial scarring, infarction, or necrosis. No evidence of myocardial edema or inflammation. Perfusion analysis demonstrates normal blood flow at rest with no evidence of resting hypoperfusion. Overall, this CMR demonstrates normal LV systolic function with overall no evidence of infiltrative cardiomyopathy. COMPARISON None CRITICAL RESULT None COMMUNICATION Per this written report The findings of this cardiac MR were reviewed, reported, and signed by Nicolás Monsivais MD (Clinical Staff Rn). Conclusion Electronically signed by : Deedee Monsivais MD 10/21/2023 12:45:52
[2023-10-15] MEDS: SODIUM CHLORIDE 0.9% 10ML SYR (RAD ONLY) 10 ML IV (11:32)
[2023-10-15] MEDS: GADOTERIDOL INJ 17ML SYRINGE 24 ML IV (11:32)
[2023-10-15] MEDS: SODIUM CHLORIDE 0.9% 50ML BAG 25 ML IV (11:32)
== END 2023-10-15 23:59 ==
LOC: RAD 10:00
PROVIDERS: PCP Family Medicine; Visit Provider Internal Medicine
DX: I10 Essential (primary) hypertension; R06.09 Other forms of dyspnea; E85.89 Other amyloidosis; E78.49 Other hyperlipidemia
CPT/HCPCS: 75561; A9576

== ENCOUNTER 2023-10-21 07:26 | Outpatient (CLI) | payer MEDICARE, OTHER, SELFPAY ==
--- NOTE | 2023-10-21 07:26 | NM_ITS ---
APPROVED REPORT Life Cycle Assessment Analyst: Procedure: 99mTc-PYP Cardiac Amyloidosis Imaging Clinical Indication: Heart failure, increased LV wall thickness Protocol: The patient received 26.7 mCi 99mTc-PYP intravenously. Planar and SPECT imaging was performed approximately 3 hours post injection. Planar images included anterior, left lateral and SUMMER-45 projections. Findings: Visual interpretation: Planar and SPECT images were reviewed The overall quality of the study was good. Semi quantitative SPECT findings showed a grade 0. Impression: 1. Overall, the quality of the study was good. 2. Semi quantitative SPECT findings showed grade 0. 3. Overall interpretation of the findings is not suggestive of ATTR amyloidosis. This study and report were reviewed and signed by Nicolás Monsivais MD (embroiderer). Conclusion Electronically signed by : Deedee Monsivais MD 10/21/2023 12:05:24
[2023-10-21] MEDS: PYROPHOSPHATE CARDIAC (PYP);1 DOSE VIAL IV (08:46)
[2023-10-21] MEDS: SODIUM CHLORIDE 0.9% 10ML SYR (RAD ONLY) 10 ML IV (08:46)
== END 2023-10-21 23:59 ==
LOC: RAD 07:26
PROVIDERS: PCP Family Medicine; Visit Provider Internal Medicine
DX: E85.9 Amyloidosis, unspecified; I10 Essential (primary) hypertension; R06.09 Other forms of dyspnea; E78.49 Other hyperlipidemia
CPT/HCPCS: 78803

== ENCOUNTER 2023-10-27 07:32 | Outpatient (CLI) | payer MEDICARE, OTHER, SELFPAY ==
[2023-10-27] MEDS: ALBUTEROL 0.083% 2.5 MG/3 ML NEB IH (08:22)
--- NOTE | 2023-10-27 08:22 | PC.NURSE ---
PFT and 6 Minute Walk completed without incident. Albuterol 0.083% given via HHN, per protocol, Pt tolerated tx well.
--- NOTE | 2023-10-27 08:58 | CT_ITS ---
FINAL REPORT TECHNIQUE: Pre-and postcontrast axial imaging of the abdomen and pelvis was obtained.This study was performed with techniques to keep radiation doses as low as reasonably achievable, (ALARA). Individualized dose reduction technique using automated exposure control or adjustment of mA and/or kV according to the patient's size were employed. CLINICAL HISTORY: sob, FOLLOW-UP ADRENAL GLAND CT AND ELEVATED BILIRUBIN COMPARISON: 09/22/2023 FINDINGS: There are groundglass opacities of the lung bases, worse from prior exam which could be infectious or inflammatory. Underlying interstitial lung disease is noted. The liver is homogeneous. The gallbladder is present. The spleen and pancreas are unremarkable. Right adrenal calcifications are unchanged. Findings could be related to prior hemorrhage or infection. No follow-up needed. The left adrenal gland is unremarkable. There is no hydronephrosis or solid renal mass. On precontrast imaging, no renal stones are identified. Abdominal GI tract is unremarkable. There is no lymphadenopathy or ascites. The appendix is not visualized. There are no secondary findings of appendicitis. There is diverticulosis without evidence of diverticulitis. Prostate is enlarged. There is no lymphadenopathy or ascites. No acute osseous abnormalities identified. IMPRESSION: Stable right adrenal calcification likely related to old hemorrhage or infection. No follow-up needed. Worsening groundglass opacities of the lung bases which may be infectious or inflammatory. Reviewed, Interpreted and Dictated by Evelin Erazo MD Transcribed by Chio Hernandez Authenticated and [facility]
[2023-10-27] MEDS: SODIUM CHLORIDE 0.9% 10ML SYR (RAD ONLY) 10 ML IV (09:47)
[2023-10-27] MEDS: IOPAMIDOL-370 (76%);100ML BOTTLE 75 ML IV (09:47)
== END 2023-10-27 23:59 ==
LOC: RT 07:32
PROVIDERS: PCP Family Medicine; Visit Provider Internal Medicine
DX: R06.09 Other forms of dyspnea (principal); R06.02 Shortness of breath
CPT/HCPCS: 74178; 94060; 94618; 94726; 94729; Q9967

== ENCOUNTER 2023-12-17 10:05 | Outpatient (CLI) | payer MEDICARE, OTHER, SELFPAY ==
[2023-12-17 11:25] LABS: Anion Gap 7.7 mEq/L (5-15); Blood Urea Nitrogen 31 mg/dl (9-20); Calcium 9.7 mg/dl (8.4-10.2); Carbon Dioxide 31 mmol/L (22.0-30.0); Chloride 102 mmol/L (98-107); Creatine Kinase 66 U/L (55-170); Estimated Glomerular Filt Rate 72 ml/min (>60); GFR (African American) 88 ML/MIN (>60); Glucose 109 mg/dl (74-100); Potassium 4.7 mmoL/L (3.5-5.1); Sodium 136 mmol/L (136-145)
[2023-12-17 11:31] LABS: C-Reactive Protein 1.7 mg/L (0-4)
== END 2023-12-17 23:59 | disposition home or self-care (01) ==
LOC: LAB 10:06
PROVIDERS: PCP Family Medicine; Visit Provider Internal Medicine Pulmonary Disease
DX: D86.9 Sarcoidosis, unspecified (principal); T38.0X5A Adverse effect of glucocorticoids and synthetic analogues, initial encounter
CPT/HCPCS: 36415; 80048; 82550; 86140